=== PATIENT | male | born 1995 | race Caucasian/White ===

== ENCOUNTER 2023-05-23 17:13 | Emergency (ER) | payer MEDICAID ==
[~2023-05-23] VITALS: Ht 172.7 cm; Wt 60.0 kg
[2023-05-23 17:29] VITALS: TEMP 98.2; O2SAT 100
[2023-05-23] MEDS ORDERED: AMOX1TAB16 MT (19:05)
[2023-05-23 19:15] VITALS: BP 139/73; PULSE 86; RESP 18
[2023-05-23] MEDS: KETOROLAC 30MG/ML VIAL IM ONE (19:15)
== END 2023-05-23 19:33 | disposition home or self-care (01) ==
LOC: ER 17:13
DX: K04.7 Periapical abscess without sinus (principal); J45.909 Unspecified asthma, uncomplicated
CPT/HCPCS: 99283; 96372; J1885